=== PATIENT | female | born 1950 | race Caucasian/White ===

== ENCOUNTER 2019-03-04 19:50 | Emergency (ER) | payer SELFPAY, OTHER | END 2019-03-04 20:00 | disposition left against medical advice (07) | LOC: E/R 19:50 | DX: Z53.21 Procedure and treatment not carried out due to patient leaving prior to being seen by health care provider (principal) ==

== ENCOUNTER 2019-03-05 17:14 | Inpatient (IN) | payer MEDICARE, OTHER ==
[2019-03-05 17:56] LABS: ADD MAN DIFF? NO
[2019-03-05 18:09] LABS: WHITE BLOOD COUNT 8.4 10^3/ul (4.8-10.8)
[2019-03-05 18:09] LABS: BASOPHIL # 0.1 10^3/ul (0.0-0.1); BASOPHILS % 0.8 % (0.0-2.0); EOSINOPHILS # 0.1 10^3/ul (0.0-0.5); EOSINOPHILS % 1.7 % (0.0-7.0); HEMATOCRIT 32.7 % (37.0-47.0); HEMOGLOBIN 11.3 g/dl (12.0-16.0); LYMPHOCYTES # 1.3 10^3/ul (0.8-2.9); LYMPHOCYTES % 15.2 % (15.0-51.0); MEAN CORPUSCULAR HEMOGLOBIN 31.7 pg (29.0-33.0); MEAN CORPUSCULAR HGB CONC 34.6 g/dl (32.0-37.0); MEAN CORPUSCULAR VOLUME 91.9 fl (82.0-101.0); MEAN PLATELET VOLUME 9.7 fl (7.4-10.4); MONOCYTES % 11.3 % (0.0-11.0); NEUTROPHIL # 5.9 10^3/ul (1.6-7.5); NEUTROPHILS % 69.9 % (39.0-77.0); PLATELET COUNT 300 10^3/UL (140-415); RED BLOOD COUNT 3.56 10^6/ul (4.20-5.40); RED CELL DISTRIBUTION WIDTH 11.3 % (11.5-14.5)
[2019-03-05] MEDS: ONDANSETRON 4 MG INJ IV (18:23)
[2019-03-05] MEDS: SOD CHLORIDE 0.9% 1,000 ML IV ×2 (18:23→22:28)
[2019-03-05] MEDS: PIPER-TAZO 3.375 GM IV (PMX) 100 ML IVPB (18:24)
[2019-03-05] MEDS: morphine 4 MG/ML VIAL IV (18:24)
[2019-03-05 18:28] LABS: ALANINE AMINOTRANSFERASE 72 IU/L (13-69); ALBUMIN 3.7 g/dl (3.3-4.9); ALBUMIN/GLOBULIN RATIO 1.32; ALKALINE PHOSPHATASE 144 IU/L (42-121); ANION GAP 9 (5-13); ASPARTATE AMINO TRANSFERASE 36 IU/L (15-46); BILIRUBIN,INDIRECT 0.5 mg/dl (0-1.1); BILIRUBIN,TOTAL 0.5 mg/dl (0.2-1.3); BLOOD UREA NITROGEN 14 mg/dl (7-20); CALCIUM 8.8 mg/dl (8.4-10.2); CARBON DIOXIDE 26 mmol/L (21-31); CHLORIDE 100 mmol/L (97-110); CREATININE 0.66 mg/dl (0.44-1.00); Estimated GFR > 60 mL/min (>60); GLUCOSE 78 mg/dl (70-220); LIPASE 58 U/L (23-300); POTASSIUM 3.8 mmol/L (3.5-5.1); SODIUM 135 mmol/L (135-144); TOTAL PROTEIN 6.5 g/dl (6.1-8.1)
[2019-03-05 18:39] LABS: INR 1.06; PARTIAL THROMBOPLASTIN TIME 35.6 Sec (23.0-35.0); PROTIME 13.9 Sec (11.9-14.9); PT RATIO 1.1
[2019-03-05] MEDS: IOHEXOL 300MG/ML 150 ML BTL (19:28)
[2019-03-05] MEDS: SOD CHLORIDE 0.9% 100 ML (19:28)
[2019-03-05] MEDS ORDERED: ACETAMINOPHEN 325 MG TAB PO (20:00)
[2019-03-05] MEDS ORDERED: ONDANSETRON 4 MG INJ IV (20:00)
[2019-03-05] MEDS ORDERED: NACL 0.9% 3 ML SYG IV (21:30)
[2019-03-05] MEDS ORDERED: morphine 2 MG INJ IV (21:30)
[2019-03-06] MEDS: PIPER-TAZO 3.375 GM IV (PMX) 100 ML IVPB ×2 (00:15→05:31)
[2019-03-06] MEDS: morphine 4 MG/ML VIAL IV ×4 (03:15→20:34)
[2019-03-06] MEDS: DIPHENHYDRAMINE 50 MG INJ IV (06:12)
[2019-03-06] MEDS: FAMOTIDINE 20 MG INJ IV ×2 (06:13→08:17)
[2019-03-06] MEDS: METHYLPREDNISOLONE 125 MG INJ IV (06:15)
[2019-03-06] MEDS: ALBUTEROL/IPRATROPIUM (NEB) 3 ML AMP HHN (06:18)
[2019-03-06 07:16] LABS: ADD MAN DIFF? NO
[2019-03-06 07:18] LABS: BASOPHILS % 0.4 % (0.0-2.0); EOSINOPHILS # 0.1 10^3/ul (0.0-0.5); EOSINOPHILS % 1.1 % (0.0-7.0); HEMOGLOBIN 11.5 g/dl (12.0-16.0); LYMPHOCYTES # 1.5 10^3/ul (0.8-2.9); MEAN CORPUSCULAR HEMOGLOBIN 31.3 pg (29.0-33.0); MEAN CORPUSCULAR HGB CONC 33.8 g/dl (32.0-37.0); MEAN CORPUSCULAR VOLUME 92.4 fl (82.0-101.0); MEAN PLATELET VOLUME 10.1 fl (7.4-10.4); MONOCYTES % 10.5 % (0.0-11.0); NEUTROPHIL # 6.7 10^3/ul (1.6-7.5); NEUTROPHILS % 71.4 % (39.0-77.0); PLATELET COUNT 327 10^3/UL (140-415); RED BLOOD COUNT 3.68 10^6/ul (4.20-5.40); RED CELL DISTRIBUTION WIDTH 11.6 % (11.5-14.5)
[2019-03-06 07:18] LABS: WHITE BLOOD COUNT 9.3 10^3/ul (4.8-10.8)
[2019-03-06 07:33] LABS: HEMOGLOBIN A1C 4.8 % (0-5.9)
[2019-03-06 07:47] LABS: ALANINE AMINOTRANSFERASE 58 IU/L (13-69); ALBUMIN 3.4 g/dl (3.3-4.9); ALBUMIN/GLOBULIN RATIO 1.25; ALKALINE PHOSPHATASE 136 IU/L (42-121); ANION GAP 7 (5-13); ASPARTATE AMINO TRANSFERASE 26 IU/L (15-46); BILIRUBIN,INDIRECT 0.5 mg/dl (0-1.1); BILIRUBIN,TOTAL 0.5 mg/dl (0.2-1.3); BLOOD UREA NITROGEN 9 mg/dl (7-20); CALCIUM 8.2 mg/dl (8.4-10.2); CARBON DIOXIDE 26 mmol/L (21-31); CHLORIDE 106 mmol/L (97-110); CHOL/HDL RATIO 4.1 RATIO; CHOLESTEROL 107 mg/dl (100-200); CREATININE 0.67 mg/dl (0.44-1.00); Estimated GFR > 60 mL/min (>60); GLUCOSE 92 mg/dl (70-220); HDL CHOLESTEROL 26 mg/dl (35-98); LDL CHOLESTEROL,CALCULATED 66 mg/dl; POTASSIUM 3.7 mmol/L (3.5-5.1); SODIUM 139 mmol/L (135-144); TOTAL PROTEIN 6.1 g/dl (6.1-8.1); TRIGLYCERIDES 75 mg/dl (0-149)
[2019-03-06] MEDS: metroNIDAZOLE 500 MG/NS (PMX) 100 ML IVPB ×4 (08:14→18:05)
[2019-03-06 08:18] LABS: THYROID STIMULATING HORMONE 0.533 MIU/L (0.465-4.680)
[2019-03-06] MEDS: CIPROFLOXACIN 400MG/D5W 200 ML IVPB ×2 (09:21→20:31)
[2019-03-06] MEDS ORDERED: DIPHENHYDRAMINE 50 MG INJ IV (11:00)
[2019-03-06] MEDS: LIDOCAINE 1% (MDV) 20 ML INJ (11:31)
[2019-03-06] MEDS: SOD CHLORIDE 0.9% 500 ML (11:31)
[2019-03-06] MEDS ORDERED: hydrALAzine 20 MG INJ IV (12:00)
[2019-03-06] MEDS: MIDAZOLAM 1 MG/ML 2 ML INJ (12:05)
[2019-03-06] MEDS: FENTAnyl 50 MCG/ML VIAL (12:06)
[2019-03-06] MEDS: LIDOCAINE 1% (MPF) 5 ML VIAL (12:14)
[2019-03-06] MEDS: SOD CHLORIDE 0.9% 1,000 ML IV ×2 (13:59→22:02)
[2019-03-06] MEDS: RANITIDINE 150 MG TAB PO (20:32)
[2019-03-06] MEDS: HYDROmorphONE 1 MG/ML SYG IV (23:07)
[2019-03-07] MEDS: LAMOTRIGINE 100 MG TAB PO ×3 (00:26→21:00)
[2019-03-07] MEDS: VENLAFAXINE (XR) 75 MG CAP PO ×3 (00:27→21:00)
[2019-03-07] MEDS: metroNIDAZOLE 500 MG/NS (PMX) 100 ML IVPB ×4 (00:27→17:25)
[2019-03-07] MEDS: ONDANSETRON 4 MG INJ IV ×2 (02:23→22:30)
[2019-03-07] MEDS: SOD CHLORIDE 0.9% 1,000 ML IV ×2 (06:15→23:02)
[2019-03-07] MEDS: LEVOTHYROXINE 75 MCG TAB PO (06:31)
[2019-03-07] MEDS: PANTOPRAZOLE (EC) 40 MG TAB PO (06:31)
[2019-03-07 07:44] LABS: ADD MAN DIFF? NO
[2019-03-07 07:47] LABS: WHITE BLOOD COUNT 14.3 10^3/ul (4.8-10.8)
[2019-03-07 07:47] LABS: BASOPHIL # 0.1 10^3/ul (0.0-0.1); BASOPHILS % 0.6 % (0.0-2.0); EOSINOPHILS % 0.2 % (0.0-7.0); HEMATOCRIT 30.3 % (37.0-47.0); HEMOGLOBIN 10.4 g/dl (12.0-16.0); LYMPHOCYTES # 1.3 10^3/ul (0.8-2.9); LYMPHOCYTES % 9.3 % (15.0-51.0); MEAN CORPUSCULAR HEMOGLOBIN 31.8 pg (29.0-33.0); MEAN CORPUSCULAR HGB CONC 34.3 g/dl (32.0-37.0); MEAN CORPUSCULAR VOLUME 92.7 fl (82.0-101.0); MEAN PLATELET VOLUME 9.9 fl (7.4-10.4); MONOCYTES % 6.8 % (0.0-11.0); NEUTROPHIL # 11.8 10^3/ul (1.6-7.5); NEUTROPHILS % 82.4 % (39.0-77.0); PLATELET COUNT 319 10^3/UL (140-415); RED BLOOD COUNT 3.27 10^6/ul (4.20-5.40); RED CELL DISTRIBUTION WIDTH 11.5 % (11.5-14.5)
[2019-03-07 08:17] LABS: PHOSPHORUS 2.7 mg/dl (2.5-4.9)
[2019-03-07 08:17] LABS: MAGNESIUM 2.2 mg/dl (1.7-2.5)
[2019-03-07 08:19] LABS: ANION GAP 8 (5-13); BLOOD UREA NITROGEN 11 mg/dl (7-20); CALCIUM 8.6 mg/dl (8.4-10.2); CARBON DIOXIDE 26 mmol/L (21-31); CHLORIDE 107 mmol/L (97-110); CREATININE 0.55 mg/dl (0.44-1.00); Estimated GFR > 60 mL/min (>60); GLUCOSE 137 mg/dl (70-220); POTASSIUM 3.5 mmol/L (3.5-5.1); SODIUM 141 mmol/L (135-144)
[2019-03-07 08:43] LABS: C-REACTIVE PROTEIN 11.5 mg/dl (0.0-0.9)
[2019-03-07] MEDS: CIPROFLOXACIN 400MG/D5W 200 ML IVPB ×2 (09:12→21:04)
[2019-03-07] MEDS: ACETAMINOPHEN 325 MG TAB PO (14:03)
[2019-03-07] MEDS: morphine 4 MG/ML VIAL IV (18:35)
[2019-03-07] MEDS: RANITIDINE 150 MG TAB PO (20:53)
[2019-03-07] MEDS: DOCUSATE SODIUM 100 MG CAP PO (21:02)
[2019-03-08] MEDS: metroNIDAZOLE 500 MG/NS (PMX) 100 ML IVPB ×4 (00:16→17:25)
[2019-03-08] MEDS: SOD CHLORIDE 0.9% 1,000 ML IV (00:16)
[2019-03-08] MEDS: morphine 4 MG/ML VIAL IV ×2 (04:10→19:47)
[2019-03-08] MEDS: ACETAMINOPHEN 325 MG TAB PO (05:04)
[2019-03-08] MEDS: LEVOTHYROXINE 75 MCG TAB PO (06:17)
[2019-03-08] MEDS: PANTOPRAZOLE (EC) 40 MG TAB PO (06:17)
[2019-03-08 07:16] LABS: ADD MAN DIFF? NO
[2019-03-08 07:24] LABS: BASOPHIL # 0.1 10^3/ul (0.0-0.1); BASOPHILS % 0.5 % (0.0-2.0); EOSINOPHILS # 0.4 10^3/ul (0.0-0.5); HEMATOCRIT 28.3 % (37.0-47.0); HEMOGLOBIN 9.7 g/dl (12.0-16.0); LYMPHOCYTES % 19.9 % (15.0-51.0); MEAN CORPUSCULAR HEMOGLOBIN 31.4 pg (29.0-33.0); MEAN CORPUSCULAR HGB CONC 34.3 g/dl (32.0-37.0); MEAN CORPUSCULAR VOLUME 91.6 fl (82.0-101.0); MEAN PLATELET VOLUME 10.3 fl (7.4-10.4); MONOCYTE # 0.9 10^3/ul (0.3-0.9); MONOCYTES % 8.6 % (0.0-11.0); NEUTROPHIL # 6.6 10^3/ul (1.6-7.5); NEUTROPHILS % 66.1 % (39.0-77.0); PLATELET COUNT 297 10^3/UL (140-415); RED BLOOD COUNT 3.09 10^6/ul (4.20-5.40); RED CELL DISTRIBUTION WIDTH 11.9 % (11.5-14.5)
[2019-03-08 07:24] LABS: WHITE BLOOD COUNT 9.9 10^3/ul (4.8-10.8)
[2019-03-08 07:39] LABS: PHOSPHORUS 3.1 mg/dl (2.5-4.9)
[2019-03-08 07:44] LABS: ANION GAP 5 (5-13); BLOOD UREA NITROGEN 14 mg/dl (7-20); CALCIUM 8.1 mg/dl (8.4-10.2); CARBON DIOXIDE 26 mmol/L (21-31); CHLORIDE 108 mmol/L (97-110); CREATININE 0.63 mg/dl (0.44-1.00); Estimated GFR > 60 mL/min (>60); GLUCOSE 86 mg/dl (70-220); POTASSIUM 4.2 mmol/L (3.5-5.1); SODIUM 139 mmol/L (135-144)
[2019-03-08] MEDS: LAMOTRIGINE 100 MG TAB PO ×2 (09:06→21:00)
[2019-03-08] MEDS: VENLAFAXINE (XR) 75 MG CAP PO ×2 (09:07→21:00)
[2019-03-08] MEDS: CIPROFLOXACIN 400MG/D5W 200 ML IVPB ×2 (10:36→20:52)
[2019-03-08] MEDS: HYDROCODONE/APAP (5/325) TAB PO (11:23)
[2019-03-08] MEDS: BISACODYL (EC) 5 MG TAB PO (12:45)
[2019-03-08] MEDS ORDERED: BISACODYL (EC) 5 MG TAB PO (17:00)
[2019-03-08] MEDS: RANITIDINE 150 MG TAB PO (20:52)
[2019-03-08] MEDS: POLYETHYLENE GLYCOL 17 GM PACKET PO (20:52)
[2019-03-09] MEDS: metroNIDAZOLE 500 MG/NS (PMX) 100 ML IVPB ×5 (00:09→23:59)
[2019-03-09] MEDS: morphine 4 MG/ML VIAL IV ×2 (00:34→21:09)
[2019-03-09] MEDS: ACETAMINOPHEN 325 MG TAB PO ×3 (03:34→20:39)
[2019-03-09 06:02] LABS: ADD MAN DIFF? NO
[2019-03-09 06:20] LABS: BASOPHIL # 0.1 10^3/ul (0.0-0.1); EOSINOPHILS # 0.3 10^3/ul (0.0-0.5); EOSINOPHILS % 4.9 % (0.0-7.0); HEMATOCRIT 29.3 % (37.0-47.0); HEMOGLOBIN 10.3 g/dl (12.0-16.0); LYMPHOCYTES # 1.8 10^3/ul (0.8-2.9); LYMPHOCYTES % 25.4 % (15.0-51.0); MEAN CORPUSCULAR HEMOGLOBIN 31.8 pg (29.0-33.0); MEAN CORPUSCULAR HGB CONC 35.2 g/dl (32.0-37.0); MEAN CORPUSCULAR VOLUME 90.4 fl (82.0-101.0); MONOCYTE # 0.7 10^3/ul (0.3-0.9); NEUTROPHILS % 57.5 % (39.0-77.0); PLATELET COUNT 335 10^3/UL (140-415); RED BLOOD COUNT 3.24 10^6/ul (4.20-5.40); RED CELL DISTRIBUTION WIDTH 11.7 % (11.5-14.5)
[2019-03-09 06:20] LABS: WHITE BLOOD COUNT 6.9 10^3/ul (4.8-10.8)
[2019-03-09] MEDS: PANTOPRAZOLE (EC) 40 MG TAB PO (06:21)
[2019-03-09] MEDS: LEVOTHYROXINE 75 MCG TAB PO (06:21)
[2019-03-09 06:41] LABS: MAGNESIUM 2.2 mg/dl (1.7-2.5)
[2019-03-09 06:41] LABS: PHOSPHORUS 3.9 mg/dl (2.5-4.9)
[2019-03-09 06:50] LABS: C-REACTIVE PROTEIN 4.7 mg/dl (0.0-0.9)
[2019-03-09 06:55] LABS: ANION GAP 7 (5-13); BLOOD UREA NITROGEN 12 mg/dl (7-20); CALCIUM 8.4 mg/dl (8.4-10.2); CARBON DIOXIDE 27 mmol/L (21-31); CHLORIDE 107 mmol/L (97-110); CREATININE 0.55 mg/dl (0.44-1.00); Estimated GFR > 60 mL/min (>60); GLUCOSE 108 mg/dl (70-220); POTASSIUM 3.8 mmol/L (3.5-5.1); SODIUM 141 mmol/L (135-144)
[2019-03-09 07:53] LABS: ERYTHROCYTE SEDIMENTATION RATE 77 mm/Hr (0-30)
[2019-03-09] MEDS: POLYETHYLENE GLYCOL 17 GM PACKET PO ×2 (09:15→20:38)
[2019-03-09] MEDS: VENLAFAXINE (XR) 75 MG CAP PO ×3 (09:15→20:48)
[2019-03-09] MEDS: CIPROFLOXACIN 400MG/D5W 200 ML IVPB ×2 (09:15→20:37)
[2019-03-09] MEDS: LAMOTRIGINE 100 MG TAB PO ×3 (09:15→20:48)
[2019-03-09] MEDS: BISACODYL 10 MG SUPP PR (14:47)
[2019-03-09] MEDS: RANITIDINE 150 MG TAB PO (20:38)
[2019-03-09] MEDS: ONDANSETRON 4 MG INJ IV (22:43)
[2019-03-10] MEDS: ACETAMINOPHEN 325 MG TAB PO ×2 (05:16→14:31)
[2019-03-10] MEDS: metroNIDAZOLE 500 MG/NS (PMX) 100 ML IVPB ×2 (05:17→12:21)
[2019-03-10 05:56] LABS: ADD MAN DIFF? NO
[2019-03-10 06:13] LABS: BASOPHIL # 0.1 10^3/ul (0.0-0.1); EOSINOPHILS # 0.4 10^3/ul (0.0-0.5); EOSINOPHILS % 4.5 % (0.0-7.0); HEMATOCRIT 31.9 % (37.0-47.0); HEMOGLOBIN 11.1 g/dl (12.0-16.0); LYMPHOCYTES # 1.9 10^3/ul (0.8-2.9); LYMPHOCYTES % 20.6 % (15.0-51.0); MEAN CORPUSCULAR HEMOGLOBIN 32.1 pg (29.0-33.0); MEAN CORPUSCULAR HGB CONC 34.8 g/dl (32.0-37.0); MEAN CORPUSCULAR VOLUME 92.2 fl (82.0-101.0); MEAN PLATELET VOLUME 9.8 fl (7.4-10.4); MONOCYTE # 0.8 10^3/ul (0.3-0.9); MONOCYTES % 8.8 % (0.0-11.0); NEUTROPHIL # 5.8 10^3/ul (1.6-7.5); NEUTROPHILS % 63.7 % (39.0-77.0); PLATELET COUNT 380 10^3/UL (140-415); RED BLOOD COUNT 3.46 10^6/ul (4.20-5.40); RED CELL DISTRIBUTION WIDTH 11.8 % (11.5-14.5)
[2019-03-10 06:13] LABS: WHITE BLOOD COUNT 9.1 10^3/ul (4.8-10.8)
[2019-03-10] MEDS: LEVOTHYROXINE 75 MCG TAB PO (06:34)
[2019-03-10] MEDS: PANTOPRAZOLE (EC) 40 MG TAB PO (06:34)
[2019-03-10 06:48] LABS: MAGNESIUM 2.1 mg/dl (1.7-2.5)
[2019-03-10 06:48] LABS: PHOSPHORUS 3.7 mg/dl (2.5-4.9)
[2019-03-10 07:03] LABS: ANION GAP 5 (5-13); BLOOD UREA NITROGEN 13 mg/dl (7-20); CALCIUM 8.3 mg/dl (8.4-10.2); CARBON DIOXIDE 32 mmol/L (21-31); CHLORIDE 105 mmol/L (97-110); CREATININE 0.62 mg/dl (0.44-1.00); Estimated GFR > 60 mL/min (>60); GLUCOSE 98 mg/dl (70-220); POTASSIUM 4.2 mmol/L (3.5-5.1); SODIUM 142 mmol/L (135-144)
[2019-03-10] MEDS: POLYETHYLENE GLYCOL 17 GM PACKET PO ×2 (08:11→20:57)
[2019-03-10] MEDS: LAMOTRIGINE 100 MG TAB PO ×2 (08:11→20:56)
[2019-03-10] MEDS: VENLAFAXINE (XR) 75 MG CAP PO ×2 (08:12→20:57)
[2019-03-10] MEDS: CIPROFLOXACIN 400MG/D5W 200 ML IVPB (09:07)
[2019-03-10] MEDS: IOHEXOL 14.3 MG(I)/ML (ADULT) BTL PO (09:54)
[2019-03-10] MEDS: BARIUM SULF 2% 450 ML BTL (BERRY SMOOTHIE) PO (15:28)
[2019-03-10] MEDS: morphine 4 MG/ML VIAL IV ×2 (15:55→23:40)
[2019-03-10] MEDS ORDERED: VANCOMYCIN IV PER PHARMACY XX (17:00)
[2019-03-10] MEDS: CEFEPIME 1GM/50 ML (PMX) 50 ML IVPB (17:40)
[2019-03-10] MEDS: VANCOMYCIN HCL 1.25 GM in SOD CHLORIDE 0.9% 250 ML IVPB (18:17)
[2019-03-10] MEDS: RANITIDINE 150 MG TAB PO (20:56)
[2019-03-11] MEDS: VANCOMYCIN 750 MG (PMX) 250 ML IVPB (05:38)
[2019-03-11] MEDS: PANTOPRAZOLE (EC) 40 MG TAB PO (06:06)
[2019-03-11] MEDS: LEVOTHYROXINE 75 MCG TAB PO (06:07)
[2019-03-11] MEDS: ACETAMINOPHEN 325 MG TAB PO ×2 (06:07→15:01)
[2019-03-11] MEDS: VENLAFAXINE (XR) 75 MG CAP PO (08:42)
[2019-03-11] MEDS: LAMOTRIGINE 100 MG TAB PO (08:42)
[2019-03-11] MEDS: POLYETHYLENE GLYCOL 17 GM PACKET PO (08:46)
[2019-03-11] MEDS: CEFEPIME 1GM/50 ML (PMX) 50 ML IVPB (09:25)
== END 2019-03-11 18:25 | disposition home or self-care (01) | DRG 757 ==
LOC: 5EC 03-07 01:43 → E/R 17:14 → PP2 19:58
PROC: 0J9C30Z Drainage of Pelvic Region Subcutaneous Tissue and Fascia with Drainage Device, Percutaneous Approach (ICD-10-PCS; principal; 2019-03-06)
DX: N73.9 Female pelvic inflammatory disease, unspecified (principal); K35.32 Acute appendicitis with perforation, localized peritonitis, and gangrene, without abscess; L02.818 Cutaneous abscess of other sites; B95.2 Enterococcus as the cause of diseases classified elsewhere; B96.20 Unspecified Escherichia coli [E. coli] as the cause of diseases classified elsewhere; K21.9 Gastro-esophageal reflux disease without esophagitis; E03.9 Hypothyroidism, unspecified; I10 Essential (primary) hypertension; F32.9 Major depressive disorder, single episode, unspecified
CPT/HCPCS: 36415; 71045; 74176; 74177; 77012; 80048; 80053; 80061; 83036; 83690; 83735; 84100; 84443; 85025; 85610; 85651; 85730; 86140; 87040-91; 87070; 94664; 96374; 96375; 99285-25

== ENCOUNTER 2019-03-17 12:25 | Emergency (ER) | payer MEDICARE, OTHER ==
[2019-03-17 15:00] LABS: URINE BLOOD (Dip) POC Negative (NEGATIVE); URINE GLUCOSE (Dip) POC Negative (NEGATIVE); URINE KETONES (Dip) POC Negative (NEGATIVE); URINE LEUKOCYTE EST (Dip) POC Negative (NEGATIVE); URINE NITRITE (Dip) POC Negative (NEGATIVE); URINE TOTAL PROTEIN POC Negative (NEGATIVE)
[2019-03-17 15:04] LABS: ADD MAN DIFF? NO
[2019-03-17 15:06] LABS: BASOPHIL # 0.1 10^3/ul (0.0-0.1); BASOPHILS % 1.5 % (0.0-2.0); EOSINOPHILS # 0.2 10^3/ul (0.0-0.5); HEMATOCRIT 39.1 % (37.0-47.0); HEMOGLOBIN 13.4 g/dl (12.0-16.0); LYMPHOCYTES # 2.5 10^3/ul (0.8-2.9); LYMPHOCYTES % 33.8 % (15.0-51.0); MEAN CORPUSCULAR HEMOGLOBIN 31.5 pg (29.0-33.0); MEAN CORPUSCULAR HGB CONC 34.3 g/dl (32.0-37.0); MEAN PLATELET VOLUME 9.7 fl (7.4-10.4); MONOCYTE # 0.6 10^3/ul (0.3-0.9); MONOCYTES % 8.1 % (0.0-11.0); NEUTROPHILS % 53.8 % (39.0-77.0); PLATELET COUNT 413 10^3/UL (140-415); RED BLOOD COUNT 4.25 10^6/ul (4.20-5.40); RED CELL DISTRIBUTION WIDTH 12.3 % (11.5-14.5)
[2019-03-17 15:06] LABS: WHITE BLOOD COUNT 7.4 10^3/ul (4.8-10.8)
[2019-03-17 15:24] LABS: ALANINE AMINOTRANSFERASE 77 IU/L (13-69); ALBUMIN 4.3 g/dl (3.3-4.9); ALBUMIN/GLOBULIN RATIO 1.34; ALKALINE PHOSPHATASE 126 IU/L (42-121); ANION GAP 8 (5-13); ASPARTATE AMINO TRANSFERASE 67 IU/L (15-46); BILIRUBIN,INDIRECT 0.3 mg/dl (0-1.1); BILIRUBIN,TOTAL 0.3 mg/dl (0.2-1.3); BLOOD UREA NITROGEN 13 mg/dl (7-20); CALCIUM 9.4 mg/dl (8.4-10.2); CARBON DIOXIDE 28 mmol/L (21-31); CHLORIDE 101 mmol/L (97-110); CREATININE 0.71 mg/dl (0.44-1.00); Estimated GFR > 60 mL/min (>60); GLUCOSE 85 mg/dl (70-220); LIPASE 660 U/L (23-300); POTASSIUM 4.5 mmol/L (3.5-5.1); SODIUM 137 mmol/L (135-144); TOTAL PROTEIN 7.5 g/dl (6.1-8.1)
[2019-03-17] MEDS: ACETAMINOPHEN 325 MG TAB PO (15:33)
[2019-03-17] MEDS: IOHEXOL 300MG/ML 150 ML BTL (16:08)
[2019-03-17] MEDS: SOD CHLORIDE 0.9% 100 ML (16:08)
[2019-03-17] MEDS: metroNIDAZOLE 500 MG/NS (PMX) 100 ML IVPB (17:00)
[2019-03-17] MEDS ORDERED: OXYCODONE/ACETAMINOPHEN (5/325) TAB PO (18:30)
[2019-03-17] MEDS ORDERED: NACL 0.9% 3 ML SYG IV (18:30)
[2019-03-17] MEDS: LEVOFLOXACIN 750MG/D5W (PMX) 150 ML IVPB (18:37)
== END 2019-03-17 18:38 | disposition home or self-care (01) ==
LOC: E/R 12:25
DX: K37 Unspecified appendicitis (principal); I10 Essential (primary) hypertension; E03.9 Hypothyroidism, unspecified; R94.5 Abnormal results of liver function studies; Z87.891 Personal history of nicotine dependence
CPT/HCPCS: 36415; 74177; 80053; 81003; 83690; 85025; 99285-25